=== PATIENT | female | born 1980 | race Two or more races ===

== ENCOUNTER 2017-09-22 11:43 | Outpatient (CLI) | payer OTHER ==
[~2017-09-22] VITALS: Ht 152.4 cm; Wt 98.9 kg
[~2017-09-22 11:43] MED LIST: AUGMENTIN1 TAB.SR2 PO
[2017-09-22] MEDS ORDERED: MUCINEX600 MG PO (13:52)
[2017-09-22] MEDS ORDERED: AMOX-CLAV 875-1 EACH PO (13:52)
[2017-09-22] MEDS ORDERED: AYR SALINE50 ML NASAL (13:54)
== END 2017-09-22 12:00 | disposition home or self-care (01) ==
LOC: OFIC 805 11:43
DX: J32.8 Other chronic sinusitis (principal); G44.89 Other headache syndrome; R43.8 Other disturbances of smell and taste; G50.1 Atypical facial pain

== ENCOUNTER 2020-10-10 06:25 | Day surgery (SDC) | payer OTHER ==
[~2020-10-10 06:25] MED LIST changes: +AMOX-CLAV 875-1 EACH PO; +AYR SALINE50 ML NASAL; +MUCINEX600 MG PO
== END 2020-10-10 10:50 | disposition home or self-care (01) ==
LOC: AMB-ENDOS 06:25
PROVIDERS: ATTEND Surgery
DX: D13.0 Benign neoplasm of esophagus (principal); K44.9 Diaphragmatic hernia without obstruction or gangrene; Z20.822 Contact with and (suspected) exposure to COVID-19